=== PATIENT | female | born 1940 | race Caucasian/White ===

== ENCOUNTER 2017-05-31 13:23 | Outpatient (CLI) | payer MEDICARE, OTHER ==
--- NOTE | 2017-05-31 15:48 | Diagnostic Imaging Report ---
DOMINIQUE SURESH (RN PLASTICS) - OP [facility] [address] [facility].[address] [id number] Report Submission Date: May 31, 2017 2:07:51 PM CDT Patient Study Name: TRISTAN RIVAS Date: May 31, 2017 1:54:37 PM CDT Modality Type: CR Gender: F Description: CHEST : 38 Institution: [facility] Physician: DOMINIQUE SURESH (RN PLASTICS) - OP Examination: Portable chest History: Chest discomfort Comparison exam: None available Findings: Single view of the chest demonstrates a normal cardiac silhouette. Tortuosity of thoracic aorta with vascular calcifications involving aortic arch. Lung goodwin without focal infiltrate. No blunting of the costophrenic margins. Significant curvature of the thoracic spine to the right. Impression: No acute pulmonary process. Electronically signed on May 31, 2017 2:07:51 PM CDT by: Gavino PEACOCK
== END 2017-05-31 13:30 ==
LOC: RAD 13:23
PROVIDERS: ATTEND Nurse Practitioner Family
DX: R09.89 Other specified symptoms and signs involving the circulatory and respiratory systems (principal)
CPT/HCPCS: 71020